=== PATIENT | female | born 1985 | race Caucasian/White ===

== ENCOUNTER 2019-08-20 18:59 | Emergency (ER) | payer OTHER ==
[2019-08-20 19:41] VITALS: BP 143/83
--- NOTE | 2019-08-20 20:25 | ER Document Report ---
ED Medical Screen (RME) - General Chief Complaint: Abdominal Pain Stated Complaint: ABDOMINAL PAIN Time Seen by Provider: 08/20/19 20:22 Mode of Arrival: Ambulatory Information source: Patient Notes: 33-year-old female presents to ED for complaint of right upper quadrant abdominal pain. She states she is feeling nauseated but has not had any vomiting no diarrhea today. She states this started yesterday after rearranging her entire house. She states she thought it was muscle pain. She states throughout the day today is gotten worse and worse and worse. She states that she smokes 2 to 3 cigarettes a day drinks maybe weekly does not do any drugs. She states she does still have her gallbladder. Next menstrual cycle was a week ago. I have greeted and performed a rapid initial assessment of this patient. A comprehensive ED assessment and evaluation of the patient, analysis of test results and completion of medical decision making process will be conducted by an additional ED providers. Physical Exam - Vital signs Vitals: Temp Pulse Resp BP Pulse Ox 98.3 F 67 16 143/83 H 99 08/20/19 19:39 08/20/19 19:39 08/20/19 19:39 08/20/19 19:39 08/20/19 19:39 Course - Vital Signs Vital signs: Temp Pulse Resp BP Pulse Ox 98.3 F 67 16 143/83 H 99 08/20/19 19:39 08/20/19 19:39 08/20/19 19:39 08/20/19 19:39 08/20/19 19:39
[2019-08-20] MEDS ORDERED: ONDANSETRON 4 MG TAB.RAPDIS PO ONE (20:26)
[2019-08-20 21:27] LABS: ABSOLUTE BASOPHILS # (AUTO) 0.1 10^3/uL (0.0-0.2); ABSOLUTE EOSINOPHILS # (AUTO) 0.2 10^3/uL (0.0-0.6); ABSOLUTE LYMPHOCYTES (AUTO) 2.6 10^3/uL (0.5-4.7); ABSOLUTE MONOCYTES (AUTO) 0.6 10^3/uL (0.1-1.4); ABSOLUTE NEUT (AUTO) 6.6 10^3/uL (1.7-8.2); BASOPHILS % (AUTO) 0.6 % (0-2); EOSINOPHILS % (AUTO) 2.3 % (0-6); HEMATOCRIT 44.3 % (36.0-47.0); HEMOGLOBIN 15.2 g/dL (12.0-15.5); LYMPHOCYTES % (AUTO) 26.1 % (13-45); MEAN CORPUSCULAR HEMOGLOBIN 30.5 pg (27.0-33.4); MEAN CORPUSCULAR HGB CONC 34.3 g/dL (32.0-36.0); MEAN CORPUSCULAR VOLUME 89 fl (80-97); MONOCYTES % (AUTO) 6.1 % (3-13); PLATELET COUNT 292 10^3/uL (150-450); RED BLOOD COUNT 4.98 10^6/uL (3.72-5.28); RED CELL DISTRIBUTION WIDTH 13.2 % (11.5-14.0); SEGMENTED NEUTROPHILS % (AUTO) 64.9 % (42-78); TOTAL CELLS COUNTED % (AUTO) 100 %; WHITE BLOOD COUNT 10.1 10^3/uL (4.0-10.5)
[2019-08-20 21:35] LABS: APPEARANCE,URINE CLEAR; BILIRUBIN,URINE NEGATIVE (NEGATIVE); COLOR,URINE YELLOW; GLUCOSE, URINE NEGATIVE (NEGATIVE); KETONES,URINE NEGATIVE (NEGATIVE); PROTEIN,URINE NEGATIVE (NEGATIVE); URINE SPECIFIC GRAVITY 1.014; UROBILINOGEN,URINE NEGATIVE mg/dL (<2.0)
[2019-08-20 21:42] LABS: ALBUMIN 4.6 g/dL (3.5-5.0); ALKALINE PHOSPHATASE 68 U/L (38-126); ANION GAP 8 (5-19); ASPARTATE AMINO TRANSFERASE 22 U/L (14-36); BILIRUBIN,DIRECT 0.2 mg/dL (0.0-0.4); BILIRUBIN,TOTAL 0.8 mg/dL (0.2-1.3); BLOOD UREA NITROGEN 12 mg/dL (7-20); CALCIUM 9.9 mg/dL (8.4-10.2); CARBON DIOXIDE 28 mmol/L (22-30); CHLORIDE 102 mmol/L (98-107); GLUCOSE 90 mg/dL (75-110); TOTAL PROTEIN 7.6 g/dL (6.3-8.2)
--- NOTE | 2019-08-20 22:09 | RADIOLOGY REPORT (SQ) ---
EXAM DESCRIPTION: US ABDOMEN LIMITED COMPLETED DATE/TME: 08/20/2019 20:26 CLINICAL HISTORY: 33 years, Female, Right upper quadrant pain with nausea no vomiting COMPARISON: None. TECHNIQUE: Limited right upper quadrant ultrasound LIMITATIONS: None. FINDINGS: The liver is homogenous in echotexture without focal lesion. No gallstones or gallbladder wall thickening. CBD measures 3.9 mm. Visualized portions of the pancreas, abdominal aorta, inferior vena cava, right kidney are unremarkable. There is no ascites IMPRESSION: Negative exam copyright 2010 [employer]- All Rights Reserved
--- NOTE | 2019-08-21 01:15 | ER Document Report ---
ED General - General Chief Complaint: Abdominal Pain Stated Complaint: ABDOMINAL PAIN Time Seen by Provider: 08/20/19 20:22 Mode of Arrival: Ambulatory - Related Data Allergies/Adverse Reactions: No Known Allergies Allergy (Unverified 08/20/19 20:25) Past Medical History - General Information source: Patient - Social History Smoking Status: Current Some Day Smoker Frequency of alcohol use: Occasional Drug Abuse: None Patient has suicidal ideation: No Patient has homicidal ideation: No Physical Exam - Vital signs Vitals: Temp Pulse Resp BP Pulse Ox 98.3 F 67 16 143/83 H 99 08/20/19 19:39 08/20/19 19:39 08/20/19 19:39 08/20/19 19:39 08/20/19 19:39 Course - Vital Signs Vital signs: Temp Pulse Resp BP Pulse Ox 98.3 F 67 16 143/83 H 99 08/20/19 19:39 08/20/19 19:39 08/20/19 19:39 08/20/19 19:39 08/20/19 19:39 - Laboratory Result Diagrams: 08/20/19 21:05 08/20/19 20:15
== END 2019-08-21 05:28 | disposition left against medical advice (07) ==
LOC: ER 18:59
DX: R10.11 Right upper quadrant pain (principal); R11.0 Nausea; F17.210 Nicotine dependence, cigarettes, uncomplicated; Z53.20 Procedure and treatment not carried out because of patient's decision for unspecified reasons
CPT/HCPCS: 99281; 36415; 83690; 85025; 80053; 81001; 76705; S0119